=== PATIENT | female | born 1955 | race Hispanic/Latino ===

== ENCOUNTER → 2019-01-25 | Day surgery (SDC) | payer BC ==
[2019-01-19 18:04] LABS: BASOPHILS % 0.6 % (0.0-1.0); EOSINOPHILS # (AUTO) 0.2 (0.0-0.4); EOSINOPHILS % 3.1 % (0.0-6.0); HEMATOCRIT 44.8 % (34.2-44.1); HEMOGLOBIN 14.1 g/dL (12.0-16.0); LYMPHOCYTES # (AUTO) 1.8 (1.0-3.2); MEAN CORPUSCULAR HEMOGLOBIN 28.8 pg (28-32); MEAN CORPUSCULAR HGB CONC 31.5 g/dL (31-35); MEAN CORPUSCULAR VOLUME 91.4 fL (81-99); MONOCYTES # (AUTO) 0.5 (0.2-0.8); NEUTROPHILS # (AUTO) 4.2 (2.1-6.9); NEUTROPHILS % 61.2 % (38.7-80.0); PLATELET COUNT 215 x10e3/uL (140-360); RED CELL DISTRIBUTION WIDTH 13.2 % (11.7-14.4)
[2019-01-19 18:18] LABS: ANION GAP 12.7 mmol/L (8-16); BLOOD UREA NITROGEN 16 mg/dL (7-26); BUN/CREATININE RATIO 19 (6-25); CALCIUM 9.5 mg/dL (8.4-10.2); CARBON DIOXIDE 27 mmol/L (22-29); CHLORIDE 105 mmol/L (98-107); CREATININE, SERUM 0.83 mg/dL (0.57-1.11); EST GLOMERULAR FILTRATION RATE > 60 ML/MIN (60-); GLUCOSE 81 mg/dL (74-118); POTASSIUM 4.7 mmol/L (3.5-5.1); SODIUM 140 mmol/L (136-145)
--- NOTE | 2019-01-19 18:21 | Diagnostic Imaging Report ---
EXAMINATION: CHEST 2 VIEWS INDICATION: Preop. Surgery. ^PRE OP ^[id number] ^[id number] ^ ORDERS COMPARISON: None FINDINGS: TUBES and LINES: None. LUNGS: Lungs are well inflated. Lungs are clear. There is no evidence of pneumonia or pulmonary edema. PLEURA: No pleural effusion or pneumothorax. HEART AND MEDIASTINUM: The cardiomediastinal silhouette is unremarkable. BONES AND SOFT TISSUES: No acute osseous lesion. Soft tissues are unremarkable. UPPER ABDOMEN: No free air under the diaphragm. IMPRESSION: No acute thoracic abnormality. Signed by: Dr. Joseph Wagner M.D. on 01/19/2019 6:17 PM
[~2019-01-25] MED LIST: BETAMETHASONE DISODIUM PHOS 6 MG/ML VIAL ONE; BUPIVACAINE HCL 0.5% INJ 30 ML VIAL INJ ONE; CEFAZOLIN SOD 1 GM/NS 50ML 50 ML IV ONE; CYMBALTA PO; DEXAMETHASONE SOD PHOS INJ 4 MG/ML VIAL ONE; FENTANYL CITRATE/PF 100MCG/2 ML INJ ONE; GABAPENTIN PO; LIDOCAINE HCL 1% LOCAL INJ 20 ML VIAL ONE; LIDOCAINE HCL 2% LOCAL INJ 5 ML SDV VIAL INJ ONE; MIDAZOLAM HCL 2 MG/2 ML VIAL ONE; MUPIROCIN 2% OINT 22 GM TUBE ONE; ONDANSETRON HCL INJ 2MG/ML 2ML 2 MG/ML VIAL ONE; PROPOFOL IV EMULSION 10 MG/ML 20 ML VIAL ONE; SEVOFLURANE INHAL SOLN 250 ML PEN BTL ONE; SYNJARDY PO; TRULICITY INJ
--- OUTSIDE RECORDS SUMMARY | 2019-01-25 05:36 | XMS REPORT | Clinical Summary ---
Author Author [facility] Organization [facility] Address Unknown Phone Unavailable Care Team Providers Care Hookman Name Role Phone Keanu Rodriguez MD PCP Allergies Comments Active Allergy Reactions Severity Noted Date Pregabalin Rash Low 11/09/2018 Medications End Date Status Medication Sig Dispensed Refills Start Date Active SYNJARDY 12.5-1,000 mg TK 1 T PO 0 tablet BID 9 Active gabapentin (NEURONTIN) TK 2 TS TID 0 600 mg tablet 9 Active rosuvastatin (CRESTOR) 20 TK 1 T HS 0 MG tablet 9 Active levothyroxine (SYNTHROID, TK 1 T PO QD 1 LEVOXYL) 112 mcg tablet 9 Active DULoxetine (CYMBALTA) 30 Take 1 tablet 60 capsule 3 MG capsuleIndications: p.o. 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 Lumbar radiculopathy 11/09/2018 Diabetic polyneuropathy associated with type 2 diabetes mellitus 11/09/2018 Left-sided weakness 11/09/2018 Encounters Care Team Description Date Type Specialty Veronica Pennington MD Diabetic polyneuropathy associated with type 2 diabetes mellitus (HCC) (Primary Dx); Lumbar radiculopathy; Thalamic syndrome; Left-sided weakness 11/09/2018 Office Visit Neurology after 01/24/2018 Family History Medical History Relation Name Comments Alzheimer's disease Mother Relation Name Status Comments Father Mother Social History Date Tobacco Use Types Packs/Day Years Used Never Smoker Smokeless Tobacco: Never Used Alcohol Use Drinks/Week oz/Week Comments Yes 2 drinks a month Sex Assigned at Date Recorded Not on file Industry Job Start Date Occupation Not on file Not on file Not on file Travel End Travel History Travel Start No recent travel history available. Last Filed Vital Signs Time Taken Vital Sign Reading 11/09/2018 8:10 AM CDT Blood Pressure 129/72 11/09/2018 8:10 AM CDT Pulse 72 - Temperature - - Respiratory Rate - - Oxygen Saturation - - Inhaled Oxygen - Concentration 11/09/2018 8:10 AM CDT Weight 96.6 kg (213 lb) 11/09/2018 8:10 AM CDT Height 170.2 cm (5' 7") 11/09/2018 8:10 AM CDT Body Mass Index 33.36 Plan of Treatment Health Maintenance Due Date Last Done Comments DIABETIC RETINAL EYE EXAM 1955 DIABETIC FOOT EXAM 09/04/1965 URINE MICROALBUMIN 09/04/1965 BREAST CANCER SCREENING 09/04/2005 COLONOSCOPY SCREENING 09/04/2005 SHINGLES VACCINES (#1) 09/04/2005 INFLUENZA VACCINE 02/03/2019 Results Not on fileafter 01/24/2018 Insurance Type Payer Benefit Subscriber ID Effective Phone Address Plan / Dates Group PPO BCBS BCBS xxxxxxxxxxxx [id number] CHOICE resent PPO/ANDERS JAIME PPO Advance Directives Patient has advance care planning documents on file. For more information, butch hoover contact: Zhang Harrsi [address] [place] [address]
--- OUTSIDE RECORDS SUMMARY | 2019-01-25 05:36 | XMS REPORT ---
Author Author [facility] Address Unknown Phone Unavailable Care Team Providers Care Child Attendant Name Role Phone MARYURI COKER Unavailable Unavailable Problems This patient has no known problems. Allergies, Adverse Reactions, Alerts This patient has no known allergies or adverse reactions. Medications This patient has no known medications. Results Test Description Test Time Test Comments Text Results Atomic Results Result Comments CHEST 2 VIEWS 2019-01-19 18:17:00 [place] [address] Patient Name: LINA COTA MR #: [id number] : 1955 Age/Sex: 63/F Req #: [id number] Adm Physician: Ordered by: MARYURI COKER DPM Report #: [id number] Location: OR Room/Bed: Procedure: [id number] DX/CHEST 2 VIEWS Exam Date: 01/19/19 Exam Time: 175 REPORT STATUS: Signed EXAMINATION: CHEST 2 VIEWS INDICATION: Preop. S urgery. PRE OP [id number] DR ORDERS COMPARISON: None FINDINGS: TUBES and LINES: None. LUNGS: Lungs are well inflated. Lungs are clear. There is no evidence of pneumonia or pulmonary edema. PLEURA: No pleural effusion or pneumothorax. HEART AND MEDIASTINUM: The cardiomediastinal silhouette is unremarkable. BONES AND SOFT TISSUES: No acute osseous lesion. Soft tissues are unremarkable. UPPER ABDOMEN: No free air under the diaphragm. IMPRESSION: No acute thoracic abnormality. Signed by: Dr. Joseph Wagner M.D. on 01/19/2019 6:17 PM Dictated By: JOSEPH WAGNER MD, MD 16 Transcribed By: WALI on 01/19/191816 COPY TO: MARYURI COKER DPM MRA BILAT LOWER EXT RUNOFFS 2018-03-04 07:23:17 CLINICAL INDICATION: I73.89 Other specified peripheral vascular diseases ; pain and swellingMODALITY: Snip2CodeX 1.5 Maryam MRITECHNIQUE: MRA of the abdominal aorta, pelvis and bilateral lower extremities is performed with intravenous gadolinium. IV contrast (Dotarem), 20 ml is administered. 3-D and MIP reconstructions are then performed.IMPRESSION:1. No evidence of abdominal aortic aneurysm or dissec tion.2. No flow-limiting stenosis identified in the arteries of the pelvis and bilateral lower extremities.3. 50% stenosis of the origin of the right renal artery noted.FINDINGS:COMPARISON: NoneThe abdominal aorta appears normal in caliber. No aneurysm or stenosis seen. The SMA, the JOSE and the left renal artery are widely patent. There is 50% stenosis at the origin of the right renal artery.The bilateral common iliac, external iliac and internal iliac arteries are widely patent without luminal stenosis.The bilateral common femoral, SFA, and popliteal arteries are widely patent.The bilateral anterior tibial, tibioperoneal trunk, peroneal and posterior tibial arteries are slightly irregular in contour and appear patent to the level of the ankle. MRI PELVIS WO (SACRUM/COCCYX) CLINICAL INDICATION: M53.3 Sacrococcygeal disorders, not elsewhere classified tail bone pain times 6 monthsMODALITY: Avanto 1.5 Maryam 18 channel MRITECHNIQUE: T1-weighted sagittal, T2-weighted fast spin echo sagittal, T2-weighted fast spin echo axial and T1 axial sequences of the sacrum and coccyx were obtained utilizing a dedicated phase array spine coil.IMPRESSION:1. No significant abnormalities sacrum and coccyxFINDINGS:COMPARISON: noneGeneral observations: Five sacral and three coccygeal segments noted. There is a 7 mm focal ovoid area of STIR signal hyperintensity involving posterior proximal C1 segment and articulation between S5 and C1 segment probably representing small nonspecific benign cyst. No surrounding abnormal signal seen. Signal in sacral and coccygeal vertebral segments otherwise unremarkable and sacral spinal canal and neural foramen unremarkable. SI joints unremarkable. Note is made of subtle STIR signal hyperintensity ventrally and dorsally surrounding the second and third segments probably representing vasculature.No evidence of fracture or significant marrow infiltrative process and no significant deformity seen
--- NOTE | 2019-01-25 09:57 | Diagnostic Imaging Report ---
Exam: Left foot series, 2 views. Clinical History: Postoperative Comparison: None Findings: Frontal and lateral views of the right foot demonstrate postoperative findings involving the first through fourth digits with a screw and pin fixating the great toe metatarsal shaft and K wires traversing the second through fourth DIP, PIP and MTP joints. Overlying gauze material obscures fine bony detail. Small plantar calcaneal spur. Impression: Postoperative changes of first through fourth digits as above. Signed by: Lincoln Mcclellan MD on 01/25/2019 9:54 AM
--- NOTE | 2019-01-25 10:05 | Operative Report ---
DATE OF PROCEDURE: 01/25/2019 SURGEON: Germán Green DPM PREOPERATIVE DIAGNOSES: 1. Painful hallux valgus deformity, left foot. 2. Painful contracted hammertoe, 2nd digit, left foot. 3. Painful contracted hammertoe, 3rd digit, left foot. 4. Painful contracted hammertoe, 4th digit, left foot. 5. Painful contracted hammertoe, 5th digit, left foot. POSTOPERATIVE DIAGNOSIS: Confirmed. OPERATIVE PROCEDURES: 1. Jerry bunionectomy screw fixation. 2. Arthroplasty of 2nd digit with K-wire fixation. 3. Arthroplasty of 3rd digit with K-wire fixation. 4. Arthroplasty of 4th digit with K-wire fixation. 5. Arthroplasty of 5th digit. 6. Intraoperative use of fluoroscopy. 7. Trigger point shot of cortisone. 8. Application of posterior splint. ANESTHESIA: General. HEMOSTASIS: Pneumatic thigh tourniquet at 350 mmHg. PROCEDURE IN DETAIL: The patient was taken into the operating room, placed on the operating table in supine position. Following induction of general anesthesia by the anesthesiologist, Webril wraps were placed on the patient's left thigh followed by application of left thigh tourniquet. The left lower extremity was then prepped and draped in the usual aseptic manner. Following procedures then performed. Procedure #1: Jerry bunionectomy with screw fixation of left foot. Attention was directed to the dorsomedial aspect of the 1st MPJ, where a 6 cm linear incision was performed. Incision was deepened down to the joint capsule. Longitudinal capsulotomy was then performed, exposing the dorsomedial exostosis of the 1st metatarsal head. Using an oscillating saw, dorsomedial exostosis was excised from the operation site in toto. A V-osteotomy was then performed from medial to lateral. Capital fragment was then transpositioned laterally upon adequate surgical and anatomical reduction. Utilizing proper AO technique, a 2.0, 16 mm cortical screw in conjunction with a buried 0.045 K-wire was then used to achieve stability of osteotomy site. All redundant bone medially was excised using oscillating saw and rotating bur. Procedure #2 through #5: Arthroplasty 2nd through 5th with K-wire fixation, 2nd through 4th. Attention was then directed to the dorsal aspect of the above-mentioned toes overlying the proximal interphalangeal joint where a 3 cm linear incision was performed. Incision was deepened down to the joint capsule. Transverse capsulotomy was then performed exposing the head of the proximal phalanx. Via the use of an oscillating saw, head of the proximal phalanges were excised from the operation site in toto. The 2nd through 4th was still noted to be contracted, so a 0.045 K-wire was introduced across the MPJs to achieve proper anatomical reduction. Procedure #6: Intraoperative use of fluoroscopy was then used to make sure a proper alignment fixation was achieved. Closure was then obtained utilizing 3-0 Vicryl, 4-0 Vicryl, and 4-0 nylon for capsule, subcutaneous tissue, and skin respectively after properly and copiously flushing the areas with saline. Procedure #7: Trigger point shot of cortisone was then given to the 1st and 4th interspace of left foot. Then, approximately 10 to 15 mL of 0.5% plain Marcaine plus 5 mL to 10 mL of 1% Xylocaine plain were used to achieve local anesthesia of the above-mentioned surgical area. Sterile dressing was applied. Upon release of the thigh tourniquet, blood hyperemia was noted immediate to all digits of the patient's left foot. Procedure #8: Application of posterior splint. A properly placed posterior splint was then applied keeping the foot at 90 degrees with respect to the leg to try for any type of postop complications. The patient was then transferred from the OR to recovery room with vital signs stable and neurovascular status intact. No intraoperative complications were encountered. Blood loss from the surgery was minimal. The patient is to remain nonweightbearing with the aid of crutches. Keep her foot elevated and is to apply an ice pack to the ankle joint area. SHEILA Sosa/TAYLORL /[id number]
[2019-01-25 10:08] VITALS: BP 143/71
== END | disposition home or self-care (01) ==
LOC: OR 05:23
PROVIDERS: ATTEND Podiatrist Foot Surgery
DX: M20.12 Hallux valgus (acquired), left foot (principal); M20.42 Other hammer toe(s) (acquired), left foot; E11.9 Type 2 diabetes mellitus without complications; E66.9 Obesity, unspecified; F32.9 Major depressive disorder, single episode, unspecified; Z86.73 Personal history of transient ischemic attack (TIA), and cerebral infarction without residual deficits
CPT/HCPCS: 28285 ×4; 28296; 36415 ×2; 71046; 73620; 80048; 82948; 85025; 93005; C1713 ×2; J0690; J0720; J1100; J2001 ×2; J2250; J2405; J2704; J3010